=== PATIENT | male | born 1940 | race Caucasian/White ===

== ENCOUNTER 2018-05-15 09:05 | Emergency (ER) | payer MEDICARE ==
[~2018-05-15] VITALS: Ht 190.5 cm; Wt 113.4 kg
[2018-05-15] MEDS ORDERED: ALLO300T2 PO (09:52)
[2018-05-15] MEDS ORDERED: LISI-552 PO (09:52)
[2018-05-15] MEDS ORDERED: TAMS0.4C98 PO (09:52)
--- NOTE | 2018-05-15 10:21 | ED Lower Extremity ---
General Chief Complaint: Lower Extremity Stated Complaint: LEGS ARE VERY SORE THOUGHT HE PULLED GROIN Nursing Triage Note: PT CO OF LOWER EXT PAIN FOR 2 WEEKS IN GROIN,THIGHS, AND BUTTOCKS, MAKES PAINFUL TO WALK, STATES STARTED ON R SIDE NOW BOTH SIDES HURTING Nursing Sepsis Screen: No Definite Risk Source: patient, spouse Exam Limitations: no limitations History of Present Illness Date Seen by Provider: May 15, 2018 Time Seen by Provider: 10:01 Initial Comments Patient presents to ER by private conveyance with chief complaint of pain in his right groin for the past 2 weeks progressively worsening. No inciting event. He thought he pulled a muscle and took some Tylenol, Motrin, heat, topical creams, muscle relaxants all with no benefit. No history of chronic back pain or surgeries in the area. The pain also radiated down his buttock to his knee a couple times. And then yesterday started presenting in his left leg down the buttock to the level of his knee. No history of hernias. No problems urinating, bowel movements. He says his dad had a history of DVTs around provoked but he has never had a DVT. No redness or swelling or tenderness at the site. No dyspareunia or discharge. No testicular pain. No fevers chills nausea vomiting diarrhea or constipation. Allergies and Home Medications Allergies Coded Allergies: No Known Drug Allergies (Unverified , 05/15/18) Home Medications Lisinopril 20 Mg Tablet, 20 MG PO DAILY, (Reported) Naproxen 500 Mg Tablet, 500 MG PO BID Prescribed by: VANDANA CHIN on 05/15/18 1219 Tamsulosin HCl 0.4 Mg Cap, 0.4 MG PO DAILY, (Reported) Patient Home Medication List Home Medication List Reviewed: Yes Review of Systems Constitutional: No chills EENTM: No ear discharge, No hearing loss, No ear pain Respiratory: No cough, No short of breath Cardiovascular: No chest pain, No edema Gastrointestinal: No abdominal pain, No constipation, No diarrhea Genitourinary: No discharge, No dysuria Musculoskeletal: No back pain, No joint pain Past Ripbgtk-Ofvxbl-Efhlvd Hx Patient Social History Alcohol Use: Rarely Uses Recreational Drug Use: No Smoking Status: Never a Smoker Recent Foreign Travel: No Contact w/Someone Who Travel: No Recent Infectious Disease Expo: No Recent Hopitalizations: No Past Medical History Surgeries: Yes Adenoidectomy, Tonsillectomy Respiratory: No Cardiac: Yes Hypertension Neurological: No Genitourinary: No Gastrointestinal: No Musculoskeletal: No Endocrine: No HEENT: No Cancer: No Psychosocial: No Integumentary: No Physical Exam Vital Signs Vital Signs - First Documented 05/15/18 09:25 Temp 97.9 Pulse 72 Resp 18 B/P (MAP) 106/70 (82) Pulse Ox 95 Capillary Refill : Less Than 3 Seconds Height, Weight, BMI Height: 6'3.00" Weight: 250lbs. oz. 113.616345ub; BMI Method:Stated General Appearance: WD/WN, no apparent distress HEENT: PERRL/EOMI, pharynx normal Cardiovascular: normal peripheral pulses, regular rate, rhythm Respiratory: no respiratory distress, no accessory muscle use Gastrointestinal: non tender, soft Back: normal inspection, no vertebral tenderness; No muscle spasm Neurologic/Tendon: normal sensation, normal motor functions, normal tendon functions, responds to pain, no evidence tendon injury Neurologic/Psychiatric: alert, normal mood/affect, oriented x 3 Skin: normal color, warm/dry Lymphatic: no adenopathy No inguinal hernia palpable. Genital exam unremarkable. No discharge, tenderness or redness. No redness in the groin, tenderness to palpation or other evidence of DVT. Progress/Results/Core Measures Results/Orders Lab Results Laboratory Tests Test 05/15/18 10:20 Range/Units White Blood Count 6.1 4.3-11.0 10^3/uL Red Blood Count 4.58 4.35-5.85 10^6/uL Hemoglobin 13.4 13.3-17.7 G/DL Hematocrit 41 40-54 % Mean Corpuscular Volume 90 80-99 FL Mean Corpuscular Hemoglobin 29 25-34 PG Mean Corpuscular Hemoglobin Concent 33 32-36 G/DL Red Cell Distribution Width 13.0 10.0-14.5 % Platelet Count 223 130-400 10^3/uL Mean Platelet Volume 10.7 H 7.4-10.4 FL Neutrophils (%) (Auto) 64 42-75 % Lymphocytes (%) (Auto) 21 12-44 % Monocytes (%) (Auto) 12 0-12 % Eosinophils (%) (Auto) 4 0-10 % Basophils (%) (Auto) 0 0-10 % Neutrophils # (Auto) 3.9 1.8-7.8 X 10^3 Lymphocytes # (Auto) 1.3 1.0-4.0 X 10^3 Monocytes # (Auto) 0.7 0.0-1.0 X 10^3 Eosinophils # (Auto) 0.2 0.0-0.3 10^3/uL Basophils # (Auto) 0.0 0.0-0.1 10^3/uL D-Dimer 1.84 H 0.00-0.49 UG/ML Sodium Level 142 135-145 MMOL/L Potassium Level 4.1 3.6-5.0 MMOL/L Chloride Level 104 98-107 MMOL/L Carbon Dioxide Level 28 21-32 MMOL/L Anion Gap 10 5-14 MMOL/L Blood Urea Nitrogen 18 7-18 MG/DL Creatinine 0.95 0.60-1.30 MG/DL Estimat Glomerular Filtration Rate > 60 BUN/Creatinine Ratio 19 Glucose Level 97 70-105 MG/DL Calcium Level 9.0 8.5-10.1 MG/DL Corrected Calcium 9.3 8.5-10.1 MG/DL Total Bilirubin 0.8 0.1-1.0 MG/DL Aspartate Amino Transf (AST/SGOT) 11 5-34 U/L Alanine Aminotransferase (ALT/SGPT) 8 0-55 U/L Alkaline Phosphatase 67 40-136 U/L Total Protein 6.2 L 6.4-8.2 GM/DL Albumin 3.6 3.2-4.5 GM/DL My Orders Orders - VANDANA CHIN Cbc With Automated Diff (05/15/18 10:19) Comprehensive Metabolic Panel (05/15/18 10:19) Fibrin Degradation Products (05/15/18 10:19) Ct Lumbar Spine Wo (05/15/18 10:19) Us Venous Lower Ext Sergio (05/15/18 12:40) Vital Signs/I&O 05/15/18 09:25 Temp 97.9 Pulse 72 Resp 18 B/P (MAP) 106/70 (82) Pulse Ox 95 Blood Pressure Mean: 82 Progress Progress Note : Time: 11:45 Progress Note was concerned about the possibility of a DVT given his groin pain and his father's history spontaneous DVTs. D-dimer failed to rule out. We'll offer an ultrasound but is unlikely with bilateral symptoms especially with her history sound like it's more neurologic and it would be explained by the imaging of the CT L-spine. Diagnostic Imaging Diagonstic Imaging: CT (noncontrast) Plain Films/CT/US/NM/MRI: other (lumbar spine) Comments [facility] [place], [place] NAME: ANDRES CHEUNG [facility] REC#: [id number] PT STATUS: REG ER : 1940 PHYSICIAN: VANDANA CHIN MD ADMIT DATE: 05/15/18/ER Draft Date of Exam:05/15/18 CT LUMBAR SPINE WO PROCEDURE: CT lumbar spine without contrast. TECHNIQUE: Multiple contiguous axial images were obtained through the lumbar spine without the use of intravenous contrast. Sagittal and coronal reformations were then performed. INDICATION: Right leg weakness and pain radiating to the right leg. No prior studies are available for comparison. FINDINGS: There is right convexity lumbar scoliotic curvature. Partial osseous fusion between the L2 and L3 vertebral bodies is noted. Vertebral body heights are maintained. No acute compression fracture is seen. There is severe degenerative disc disease at all levels of the lumbar spine with significant disc space narrowing and marginal spurring. There is also significant multilevel facet arthropathy. There is significant left neuroforaminal stenosis at the L2-L3 level. Moderate bilateral neuroforaminal stenosis is seen at L3-L4. There is significant right and left neuroforaminal stenosis at L4-L5 and L5-S1 levels due to endplate osteophytes. Paraspinous tissues are unremarkable. IMPRESSION: Severe lumbar spondylosis with multilevel neuroforaminal stenosis, described level by level above. No acute bony abnormality is detected. Dictated on workstation # [id number] Dict: 05/15/18 1059 Trans: 05/15/18 1108 KB [id number] Interpreted by: DENYS AREVALO MD Electronically signed by: Reviewed: Reviewed by Me Diagonstic Imaging: Ultrasound Plain Films/CT/US/NM/MRI: other (lower extremity venous) Comments Negative for DVT Reviewed: Reviewed by Me Departure Impression Primary Impression: Neural foraminal stenosis of lumbosacral spine Disposition: HOME, SELF-CARE Condition: Stable Departure-Patient Inst. Decision time for Depature: 12:01 Referrals: DEZ MONGE MD Patient Instructions: Do I Need Imaging for Low Back Pain?, Spinal Stenosis Add. Discharge Instructions: Start taking the Naprosyn 500 mg twice a day on a schedule for the next 2 weeks. If you begin to have chest pain or abdominal pain while taking the Naprosyn you should discontinue it immediately and follow up either with your primary care doctor or the nearest ER. Call orthopedics and obtain follow-up in the next 1-2 weeks. Discuss imaging with primary care or orthopedic surgery. Avoid activity that worsens your pain. Obtain a back brace and wear it on the days that it helps. If you're not getting adequate relief from the Naprosyn and Tylenol 1000 mg every 8 hours as needed and you can discuss with primary care referral to physical therapy, a course of steroids or more potent pain medicines if necessary. All discharge instructions reviewed with patient and/or family. Voiced understanding. Scripts Naproxen (Naprosyn) 500 Mg Tablet 500 MG PO BID for 14 Days, #30 TAB 0 Refills Prov: VANDANA CHIN 05/15/18 Copy Copies To 1: DEZ MONGE MD, TITUS J May 15, 2018 10:21
[2018-05-15 10:38] LABS: BASOPHILS % (AUTO) 0 % (0-10); EOSINOPHILS # (AUTO) 0.2 10^3/uL (0.0-0.3); EOSINOPHILS % (AUTO) 4 % (0-10); HEMATOCRIT 41 % (40-54); HEMOGLOBIN 13.4 G/DL (13.3-17.7); LYMPHOCYTES # (AUTO) 1.3 X 10^3 (1.0-4.0); LYMPHOCYTES % (AUTO) 21 % (12-44); MEAN CORPUSCULAR HEMOGLOBIN 29 PG (25-34); MEAN CORPUSCULAR HGB CONC 33 G/DL (32-36); MEAN CORPUSCULAR VOLUME 90 FL (80-99); MEAN PLATELET VOLUME 10.7 FL (7.4-10.4); MONOCYTES # (AUTO) 0.7 X 10^3 (0.0-1.0); MONOCYTES % (AUTO) 12 % (0-12); NEUTROPHILS # (AUTO) 3.9 X 10^3 (1.8-7.8); NEUTROPHILS % (AUTO) 64 % (42-75); PLATELET COUNT 223 10^3/uL (130-400); WHITE BLOOD COUNT 6.1 10^3/uL (4.3-11.0)
[2018-05-15 11:02] LABS: ALANINE AMINOTRANSFERASE 8 U/L (0-55); ALBUMIN 3.6 GM/DL (3.2-4.5); ALKALINE PHOSPHATASE 67 U/L (40-136); BILIRUBIN,TOTAL 0.8 MG/DL (0.1-1.0); BUN/CREATININE RATIO 19; CARBON DIOXIDE 28 MMOL/L (21-32); CHLORIDE 104 MMOL/L (98-107); CREATININE SERUM 0.95 MG/DL (0.60-1.30); GFR ESTIMATED > 60; GLUCOSE 97 MG/DL (70-105); POTASSIUM 4.1 MMOL/L (3.6-5.0); SODIUM 142 MMOL/L (135-145); TOTAL PROTEIN 6.2 GM/DL (6.4-8.2)
--- NOTE | 2018-05-15 11:09 | Diagnostic Imaging Report ---
PROCEDURE: CT lumbar spine without contrast. TECHNIQUE: Multiple contiguous axial images were obtained through the lumbar spine without the use of intravenous contrast. Sagittal and coronal reformations were then performed. INDICATION: Right leg weakness and pain radiating to the right leg. No prior studies are available for comparison. FINDINGS: There is right convexity lumbar scoliotic curvature. Partial osseous fusion between the L2 and L3 vertebral bodies is noted. Vertebral body heights are maintained. No acute compression fracture is seen. There is severe degenerative disc disease at all levels of the lumbar spine with significant disc space narrowing and marginal spurring. There is also significant multilevel facet arthropathy. There is significant left neuroforaminal stenosis at the L2-L3 level. Moderate bilateral neuroforaminal stenosis is seen at L3-L4. There is significant right and left neuroforaminal stenosis at L4-L5 and L5-S1 levels due to endplate osteophytes. Paraspinous tissues are unremarkable. IMPRESSION: Severe lumbar spondylosis with multilevel neuroforaminal stenosis, described level by level above. No acute bony abnormality is detected. Dictated by: Dictated on workstation # [id number]
[2018-05-15] MEDS ORDERED: NAPR-1071 PO (12:19)
[2018-05-15 13:57] VITALS: BP 106/70
--- NOTE | 2018-05-15 19:01 | Diagnostic Imaging Report ---
PROCEDURE: US Venous Lower Ext Sergio. TECHNIQUE: Multiple real-time grayscale images were obtained over the lower extremities in various projections, bilaterally. Additional duplex Doppler and color Doppler images were also obtained. INDICATION: Pain and swelling. FINDINGS: There are no focally elevated velocities in either internal carotid artery. The ICA/CCA ratios are within normal limits, bilaterally. There is antegrade flow in the vertebral arteries, bilaterally. Grayscale images demonstrate minimal carotid plaque, bilaterally. IMPRESSION: Minimal bilateral carotid plaque however spectral analysis shows no evidence of a hemodynamically significant stenosis in either internal carotid artery. Dictated by: Dictated on workstation # [id number]
== END 2018-05-15 14:05 | disposition home or self-care (01) ==
LOC: EDUNIT# 09:05 → ER 09:11
DX: M99.53 Intervertebral disc stenosis of neural canal of lumbar region (principal); I10 Essential (primary) hypertension; Z90.89 Acquired absence of other organs
CPT/HCPCS: 36415; 72131; 80053; 85025; 85379; 93970

== ENCOUNTER → 2018-05-16 | Outpatient (CLI) | payer MEDICARE ==
[~2018-05-16] MED LIST: ALLO300T2 PO; LISI-552 PO; NAPR-1071 PO; TAMS0.4C98 PO
--- NOTE | 2018-05-16 16:43 | Diagnostic Imaging Report ---
CLINICAL INDICATION: Patient with low back pain and bilateral leg pain, which is worse on the right. No injury. EXAM: MRI of the lumbar spine performed without IV contrast. Sequences include sagittal T2, sagittal T1, sagittal T2 fat-sat, coronal T2, and axial T2. COMPARISON: CT scan of the lumbar spine without contrast dated 05/15/2018. FINDINGS: There is roughly 20 degrees of dextroscoliosis of the lumbar spine with apex at the L2-L3 intervertebral level. There is bony bridging/fusion of the L2-L3 level. There is note of a parapelvic cyst involving the left kidney. There is stable appearance of the lumbar spine with multilevel lumbar spine degenerative disease with vertebral body spurs and facet arthropathy. There is straightening of the lumbar spine posture. The visualized portions of the distal thoracic spinal cord, conus medullaris, and cauda equina nerve roots are unremarkable. The conus medullaris tip is seen at the lower L1 vertebral body level. T12-L1: There is a diffuse disc bulge and mild bilateral facet arthropathy. There is no significant central spinal canal or neural foramen narrowing. L1-L2: There is a diffuse disc bulge with bdappdnn-oe-ebguzd loss of intervertebral disc height and bilateral facet arthropathy. There is no significant central canal narrowing. There is mild left neural foramen narrowing. L2-L3: There is intervertebral bony bridging/fusion with minimal intervertebral disc remaining on right side. There is moderate bilateral facet arthropathy. There is mild central canal narrowing. There is dhyn-mn-dypxepip right neural foramen narrowing and severe left neural foramen narrowing. L3-L4: There is a diffuse disc bulge with fptb-fc-vanbhppr loss of intervertebral disc height. There is severe bilateral facet arthropathy/hypertrophy and ligamentum flavum buckling. There is severe bilateral neural foramen narrowing and moderate central canal narrowing. L4-L5: There is a diffuse disc bulge with moderate loss of intervertebral disc height. There is severe bilateral facet arthropathy/hypertrophy. There is severe bilateral neural foramen narrowing (right side more than the left). There is no significant central canal narrowing. L5-S1: There is a diffuse disc bulge with severe loss of intervertebral disc height. There is moderate left neural foramen narrowing and severe right neural foramen narrowing. There is no significant central canal narrowing. IMPRESSION: 1: There is no acute lumbar spine fracture or dislocation. 2: There is ynivhole-ku-xkubqa multilevel lumbar spine degenerative disc disease with dextroscoliosis which is described in detail above. 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 Dictated by: Dictated on workstation # [id number]
== END ==
LOC: RAD 15:08
PROVIDERS: ATTEND Family Medicine
DX: M48.07 Spinal stenosis, lumbosacral region (principal); M41.86 Other forms of scoliosis, lumbar region; M46.86 Other specified inflammatory spondylopathies, lumbar region; M51.37 Other intervertebral disc degeneration, lumbosacral region; M51.27 Other intervertebral disc displacement, lumbosacral region
CPT/HCPCS: 72148

== ENCOUNTER → 2019-05-08 | Outpatient (CLI) | payer MEDICARE ==
[~2019-05-08] MED LIST changes: -TAMS0.4C98 PO; +TMSL.4C PO
--- NOTE | 2019-05-08 13:19 | Diagnostic Imaging Report ---
PROCEDURE: US Renal Bilateral. TECHNIQUE: Multiple real-time grayscale images were obtained over the kidneys in various projections bilaterally. INDICATION: Left parapelvic cyst. COMPARISON: There are no prior renal ultrasound examinations available for comparison. FINDINGS: This exam was technically difficult due to the patient's body habitus. The previous MRI lumbar spine exam performed on 05/16/2018 did suggest a parapelvic cyst associated with the left kidney. On this exam both kidneys were identified. The right kidney measures 11.1 x 6.7 x 7.5 cm while the left kidney is estimated be 12.7 x 5.1 x 7.4 cm. There is a benign-appearing 2.3 x 2.2 x 2.1 cm cyst along the medial aspect of the midportion of the right kidney. There may also be a small subcentimeter parapelvic cyst on the left. This parapelvic cyst does not appear as prominent as noted on the previous MRI lumbar spine exam. There is no evidence for a solid renal mass or for hydronephrosis of either kidney. The renal cortices are somewhat thin but normal in echogenicity. The bladder was imaged during the course of the exam. The bladder is only partially filled and consequently not well evaluated. There is no obvious bladder abnormality evident. IMPRESSION: 1. There is no evidence for a solid renal mass or for an acute abnormality of either kidney. 2. There is a benign-appearing 2.3 cm cyst along the medial aspect of the right kidney. There also appears to be a small subcentimeter parapelvic cyst on the left. 3. There is no obvious bladder abnormality evident. Dictated by: Dictated on workstation # [id number]
== END ==
LOC: RAD 10:32
PROVIDERS: ATTEND Family Medicine
DX: N28.1 Cyst of kidney, acquired (principal)
CPT/HCPCS: 76770

== ENCOUNTER → 2021-07-29 | Outpatient (CLI) | payer MEDICARE ==
[~2021-07-29] MED LIST changes: -LISI-552 PO; +LISI20TA26 PO
[2021-07-29 08:41] LABS: ALBUMIN 3.8 GM/DL (3.2-4.5); POTASSIUM 4.3 MMOL/L (3.6-5.0)
[2021-07-29 08:43] LABS: CALCIUM 9.1 MG/DL (8.5-10.1)
[2021-07-29 08:44] LABS: TOTAL PROTEIN 6.3 GM/DL (6.4-8.2)
[2021-07-29 08:46] LABS: BILIRUBIN,TOTAL 0.8 MG/DL (0.1-1.0)
[2021-07-29 08:47] LABS: CREATININE SERUM 0.98 MG/DL (0.60-1.30)
== END ==
LOC: LAB 08:16
PROVIDERS: ATTEND Family Medicine
DX: C67.9 Malignant neoplasm of bladder, unspecified (principal)
CPT/HCPCS: 36415; 80053

== ENCOUNTER → 2021-07-29 | Outpatient (CLI) | payer MEDICARE ==
[~2021-07-29] MED LIST changes: +CATHETER FLUSH 10 ML SYR IV PRN; +HOLD METFORMIN - RECEIVED CONTRAST 20 ML VIAL IV SCH; +IOHEXOL 350 MG/ML 100 ML (OMNIPAQUE 350) VIAL IV ONE; +NS 100 ML (IVPB) BAG IV ONE
--- NOTE | 2021-07-29 14:44 | Diagnostic Imaging Report ---
PROCEDURE: CT abdomen and pelvis with and without contrast. TECHNIQUE: Precontrast acquisitions were acquired through the abdomen and pelvis. Multiple contiguous axial images were obtained through the abdomen and pelvis after the administration of intravenous contrast. Auto Exposure Controls were utilized during the CT exam to meet ALARA standards for radiation dose reduction. INDICATION: 80-year-old male with history of bladder cancer Comparisons: Renal ultrasound 05/08/2019. FINDINGS: Lung bases show some mild chronic parenchymal changes. There is no subpleural dependent atelectatic infiltrates but no consolidations. There is no effusion or pneumothorax. Cardiac contour is normal. There are coronary artery calcifications as well as calcifications at the aortic root. Liver shows uniform attenuation. There is no intraparenchymal mass or ductal dilatation. Gallbladder is nondistended. There is a 2 cm in long axis partially calcified stone in the gallbladder. There is no wall thickening or pericholecystic fluid. Spleen and GE junction are normal. Stomach and duodenal sweep are unremarkable. Pancreas shows sharp margins. Adrenals are normal. Kidneys show a lumpy bumpy contour possibly sequela of previous infection or infarct. There are prominent perirenal pelvic cysts. There is no hydronephrosis or hydroureter. Both ureters are seen throughout their course and appear grossly unremarkable. There is prominence of the bladder wall at the base of the bladder. This may be due to mass effect from a enlarged prostate. Bilateral bladder diverticula are seen. The left diverticula is prominent and measures approximately 3 cm in long axis. The largest left diverticula has an air-fluid level. In addition the wall of the fistula is thickened and irregular. Nonopacified loops of small bowel are normal. Large bowel contains fecal material and gas. The appendix unremarkable.. There is left colon diverticulosis but no evidence of acute diverticulitis. Bone windows show moderate severe degenerative changes of lumbosacral spine with multilevel disc generation, endplate marginal osteophytes as well as multilevel hypertrophic facet changes. No lytic or blastic changes seen. IMPRESSION: 1. There is irregular bladder wall thickening in keeping with the patient's known history of bladder cancer. The prostate however does indent the base of the bladder. 2. There are bilateral bladder diverticula. The left diverticula measures approximately 3 cm long axis also contains a prominent wall thickening. 3. Descending colon and sigmoid colon diverticulosis but no evidence of acute diverticulitis. 4. Renal cortical thinning probably age-appropriate. There is bilateral prominent renal peripelvic cysts. There is no obstructive uropathy. 5. Cholelithiasis with a 2 cm long axis calcified stone in the gallbladder but no secondary signs of acute cholecystitis. Additional nonemergent findings as described above. Dictated by: Dictated on workstation # [id number]
== END ==
LOC: RAD 12:51
PROVIDERS: ATTEND Specialist
DX: C67.2 Malignant neoplasm of lateral wall of bladder (principal); N32.3 Diverticulum of bladder; K57.30 Diverticulosis of large intestine without perforation or abscess without bleeding; N28.1 Cyst of kidney, acquired; K80.20 Calculus of gallbladder without cholecystitis without obstruction; M47.817 Spondylosis without myelopathy or radiculopathy, lumbosacral region; M25.78 Osteophyte, vertebrae
CPT/HCPCS: 74178